=== PATIENT | female | born 2000 | race Caucasian/White ===

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

== ENCOUNTER 2024-11-01 08:00 | Outpatient (RCR) | payer OTHER, SELFPAY ==
--- NOTE | 2024-10-02 13:26 | HP.PTEVAL_ITS ---
Patient's Visit Information Visit Information Visit Information: ADRIEN ALONSO is a 24 year old F referred to Physical Therapy by Dr. Orlando Rogers MD with a diagnosis of Back pain. Date of Evaluation: 10/02/24 Physical Therapist: Bk Ugalde DPT Visit Plan Frequency: 2x /Week Duration: 4 Weeks Plan: In aquatic setting; Progress core strengthening, B hip strengthening, multifidus strengthening She is doing well, progress to challenge Pt. has started some gym exercises. She was focusing on crutches and flexion exercises. I showed her neutral spine exercises this date. Follow up with her on these to increase carry over. Progress as needed. Subjective Subjective: Pt. is here today for her initial evaluation with diagnosis of back pain. Pt. reports having pain for a while now without mech of injury. Pt. reports having 2 injections, 1 ~2 weeks ago. Pt. is doing much better currently. She was previously having pain down both legs at times to the level of her knee. She did previously do therapy with focus on extension exercises. She is doing well right now after her injection. Pt. was told that she needs to work on core strengthening, so she has started doing crunches at local gym. 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 Increases pain: sitting, morning and prolonged standing. Decreases pain: walking and standing for shorter periods of time. Pt. is hopeful to reduce symptoms in order to get back to all work and recreational activities without limitations. Pain Lumbar spine: Pain Intensity (Out of 10): 0 Pain Intensity Range: 0 and 4 Objective Objective: POSTURE: pt. has decent posture in stance. No large lateral shift noted. PALPATION: Pt. has mild increase in symptoms with spring testing of L3-L5 and B SI region. No radicular symptoms produced. NEURO: normal DTR and normal sensation in BLEs. ROM: LUMBAR SPINE: flexion min loss tightness noted, ext min/mod loss increase NW, R SB nil loss mild increase NW, SB L nil loss NE, rotation nil loss bilat NE. Pt. has normal quad length. Normal HS length. MMT: Pt. has good strength throughout distal LEs. Pt. has poor+ core strength, B hips: flexion 5/5, abd 4+/5, ext 4+/5, trunk extension 4/5. Balance/Special Test Scores Oswestry Low Back Score: 12 Goals Goal 1:: LTG: pt. to be I with HEP. Goal Time Frame: 4-6 Weeks Goal 2:: LTG: Pt. to have no pain in her lumbar spine with all her daily and work activities. Goal Time Frame: 4-6 Weeks Goal 3:: STG: pt. to have full lumbar ROM without increase in symptoms. Goal Time Frame: 2 Weeks Goal 4:: LTG: Pt. to have increased core strength to fair+. Goal Time Frame: 4-6 Weeks Rehabilitation Potential Physical Therapy Diagnosis: Pt. has signs and symptoms consistent with lumbar spine pain. Pt. did not have any radicular symptoms this date. Pt. would benefit from PT to address her low back pain in aquatic setting to increase core strength/stability. Rehabilitation Potential: Excellent Anticipated Interventions Patient/Client Instruction: Educate patient on: Condition, Plan of Care, Risk Factors and Benefits of Fitness Program For the Purpose of:: To facilitate caregiver knowledge, To improve self management, To prevent re-injury, To improve ability to perform tasks related to life management and To improve tolerance to ADL's Therapeutic Exercise to Include: Strength training, Power training, Endurance training, Postural training, Flexibilty training, "In an aquatic setting" and Dynamic Lumbar Stabilization For the Purpose of:: To decrease pain, To increase ROM, To improve muscle performance and motor function, To improve ability to perform ADL's, To increase tolerance to activity/condition/position, To improve performance and independence with ADL's, To improve health of tissue, To decrease soft tissue restriction and To increase flexibility/ROM Text: Thank you for the opportunity to evaluate your patient. For Medicare and Medicare HMO plans, please review the plan of care and approve it. It will need to be FAXED BACK to us at [phone] for Medicare purposes. For Medicare only, by signing this I certify the plan of care. Please let me know if there are questions or concerns regarding this plan of care. Physician Signature: Date:
== END 2024-11-01 19:00 | disposition home or self-care (01) ==
LOC: PT 08:00
PROVIDERS: PCP Family Medicine; Referring Provider Anesthesiology Pain Medicine; Visit Provider Anesthesiology Pain Medicine
DX: M54.9 Dorsalgia, unspecified (principal)
CPT/HCPCS: 97113; 97161; 97530